=== PATIENT | male | born 1960 | race Two or more races ===

== ENCOUNTER 2022-01-22 10:03 | Outpatient (REF) | payer OTHER, SELFPAY ==
[2022-01-22 11:20] LABS: Appearance Urine CLEAR; Color Urine YELLOW; Glucose Urine UA NEG (NEG); Leukocyte Esterase Urine NEG (NEG); Nitrite Urine NEG (NEG); Specific Gravity - Urine >= 1.030 (1.005-1.025); Urine Blood 1+ (NEG); Urine Ketones NEG (NEG); Urine Protein NEG (NEG-TRACE)
[2022-01-22 11:22] LABS: MANUAL DIFF FLAG NO
[2022-01-22 11:38] LABS: Calcium Oxalate Crystals Urine TRACE /LPF; Squamous Epithelial Cell Urine TRACE /LPF; WBC Urine 0 /HPF (0-4)
[2022-01-22 11:47] LABS: Basophils Absolute Auto 0.1 X10*3/uL (0.0-0.2); Basophils Percent Auto 0.7 % (0-2); Eosinophils Absolute Auto 0.4 X10*3/uL (0.0-0.4); Hematocrit 40.1 % (42.0-52.0); Hemoglobin 13.6 g/dl (14.0-18.0); Imm Gran Abs Auto 0.01 X10*3/uL (0.00-0.03); Imm Gran Pct Auto 0.1 % (0.0-0.4); Lymphocytes Absolute Auto 2.6 X10*3/uL (1.2-4.9); Lymphocytes Percent Auto 35.9 % (20-40); Mean Corpuscular HGB Conc 33.9 g/dl (31.0-36.0); Mean Corpuscular Hemoglobin 29.7 pg (27.0-33.0); Mean Corpuscular Volume 87.6 fL (80.0-98.0); Mean Platelet Volume 10.4 fL (9.4-12.4); Monocytes Absolute Auto 0.7 X10*3/uL (0.1-1.2); Monocytes Percent Auto 9.4 % (2-11); Neutrophils Absolute Auto 3.5 x10*3/uL (2.0-8.3); Neutrophils Percent Auto 48.9 % (45-73); Platelet Count 243 X10*3/uL (160-400); Red Blood Count 4.58 X10*6/uL (4.60-5.80); Red Cell Distribution Width 13.2 % (11.0-16.0); White Blood Count 7.2 X10*3/uL (4.8-10.8)
[2022-01-22 12:11] LABS: PSA,Total (Free>4and<10) 1.25 ng/mL (0.00-4.00)
[2022-01-22 12:20] LABS: Alanine Aminotransferase 15 U/L (0-40); Albumin Level 4.2 g/dL (3.5-5.0); Alkaline Phosphatase 96 U/L (39-117); Anion Gap 15 (12-20); Aspartate Amino Transferase 14 U/L (5-37); Bilirubin Total 0.4 mg/dL (0.0-1.0); Blood Urea Nitrogen 14 mg/dL (9-16); Calcium 9.1 mg/dL (8.4-10.2); Carbon Dioxide 24 mmol/L (22-29); Chloride 106 mmol/L (96-108); Cholesterol 267 mg/dL; Estimated Glomerular Filt Rate > 60; Glucose Fasting 100 mg/dL (60-99); HDL Cholesterol 35 mg/dL; LDL Cholesterol Calculated 206 mg/dl; Sodium 141 mmol/L (135-145); Total Protein 7.2 g/dL (6.5-8.0); Triglycerides 131 mg/dL
== END 2022-01-22 10:04 | disposition home or self-care (01) ==
LOC: HO.HMGCLDS 10:03
PROVIDERS: PCP Internal Medicine; Visit Provider Internal Medicine
DX: Z00.00 Encounter for general adult medical examination without abnormal findings (principal); Z12.5 Encounter for screening for malignant neoplasm of prostate
CPT/HCPCS: 36415; 80053; 80061; 81001; 84153; 85025

== ENCOUNTER 2022-02-19 14:59 | Outpatient (REF) | payer OTHER, SELFPAY ==
--- NOTE | ~2022-02-19 | US_ITS ---
EXAMINATION: US RETROPERITONEAL LIMITED (RENAL ONLY) CLINICAL INFORMATION: Hyperlipidemia, unspecified. COMPARISON: None TECHNIQUE: Real-time imaging of the kidneys. FINDINGS: RIGHT KIDNEY: 10.8 x 5.4 x 7.2 cm (SAG x AP x TRV). The kidney is normal in size, contour, and echogenicity. Renal cortical thickness is normal. No renal calculi or hydronephrosis. There is an anechoic cyst midpole measuring 0.82 x 0.84 x 0.75 cm. LEFT KIDNEY: 11.8 x 5.6 x 5.7 cm (SAG x AP x TRV). The kidney is normal in size, contour, and echogenicity. Renal cortical thickness is normal. No calculi or focal parenchymal lesions. No hydronephrosis. US/US renal BI IMPRESSION: Anechoic complex cyst midpole measuring 0.82 x 0.85 x 0.75 cm.
== END 2022-02-19 15:00 | disposition home or self-care (01) ==
LOC: HO.HMGCX 14:59
PROVIDERS: Visit Provider Internal Medicine
DX: E78.5 Hyperlipidemia, unspecified (principal); R31.29 Other microscopic hematuria
CPT/HCPCS: 76775

== ENCOUNTER 2022-03-14 15:23 | Outpatient (REF) | payer OTHER, SELFPAY ==
--- NOTE | ~2022-03-14 | US_ITS ---
EXAMINATION: US PELVIS LIMITED (BLADDER) CLINICAL INFORMATION: Microscopic hematuria. COMPARISON: Renal ultrasound 02/19/2022. TECHNIQUE: Real-time imaging of the bladder. FINDINGS: BLADDER: Well distended and normal. Bilateral ureteral jets are demonstrated. Prevoid bladder volume is 455 mL. Postvoid bladder volume is 38 mL. PROSTATE: Mild prostatomegaly with a volume of 36 cc. US/US bladder IMPRESSION: 1. No significant urinary bladder abnormality. 2. Mild prostamegaly.
== END 2022-03-14 15:24 | disposition home or self-care (01) ==
LOC: HO.HMGCX 15:23
PROVIDERS: PCP Internal Medicine; Visit Provider Internal Medicine
DX: E78.5 Hyperlipidemia, unspecified (principal); R31.29 Other microscopic hematuria
CPT/HCPCS: 76857

== ENCOUNTER 2022-07-22 14:39 | Outpatient (REF) | payer OTHER, SELFPAY ==
[2022-07-22 16:38] LABS: MANUAL DIFF FLAG NO
[2022-07-22 16:47] LABS: Basophils Absolute Auto 0.1 X10*3/uL (0.0-0.2); Basophils Percent Auto 0.6 % (0-2); Eosinophils Absolute Auto 0.3 X10*3/uL (0.0-0.4); Hemoglobin 13.3 g/dl (14.0-18.0); Imm Gran Abs Auto 0.03 X10*3/uL (0.00-0.03); Imm Gran Pct Auto 0.3 % (0.0-0.4); Lymphocytes Percent Auto 31.4 % (20-40); Mean Corpuscular HGB Conc 33.3 g/dl (31.0-36.0); Mean Corpuscular Hemoglobin 29.1 pg (27.0-33.0); Mean Corpuscular Volume 87.5 fL (80.0-98.0); Mean Platelet Volume 10.5 fL (9.4-12.4); Monocytes Absolute Auto 0.8 X10*3/uL (0.1-1.2); Monocytes Percent Auto 8.5 % (2-11); Neutrophils Absolute Auto 5.3 x10*3/uL (2.0-8.3); Neutrophils Percent Auto 56.2 % (45-73); Platelet Count 250 X10*3/uL (160-400); Red Blood Count 4.57 X10*6/uL (4.60-5.80); Red Cell Distribution Width 13.4 % (11.0-16.0); White Blood Count 9.4 X10*3/uL (4.8-10.8)
[2022-07-22 16:54] LABS: Appearance Urine Clear; Color Urine Yellow; Glucose Urine UA Negative (Negative); Leukocyte Esterase Urine Trace (Negative); Nitrite Urine Negative (Negative); UMIC TRIGGER UA YES; Urine Blood Trace (Negative); Urine Ketones Negative (Negative); Urine Protein Negative (Neg-Trace)
[2022-07-22 16:59] LABS: Bacteria Urine None Seen (None Seen); Hyaline Casts Urine 0-2 /LPF (0-2); Squamous Epithelial Cell Urine 0-2 /HPF (0-2); WBC Urine 0-5 /HPF (0-5)
[2022-07-22 17:03] LABS: Alanine Aminotransferase 18 U/L (0-40); Albumin Level 4.3 g/dL (3.5-5.0); Alkaline Phosphatase 94 U/L (39-117); Anion Gap 15 (12-20); Aspartate Amino Transferase 13 U/L (5-37); Bilirubin Total 0.3 mg/dL (0.0-1.0); Blood Urea Nitrogen 13 mg/dL (9-16); C Reactive Protein 0.58 mg/dL (< or = 0.50); Calcium 9.4 mg/dL (8.4-10.2); Carbon Dioxide 28 mmol/L (22-29); Chloride 105 mmol/L (96-108); Cholesterol 264 mg/dL; Estimated Glomerular Filt Rate > 60; Glucose Random 99 mg/dL (60-115); HDL Cholesterol 36 mg/dL; LDL Cholesterol Calculated 200 mg/dl; Potassium 4.5 mmol/L (3.3-5.1); Sodium 143 mmol/L (135-145); Total Protein 7.1 g/dL (6.5-8.0); Triglycerides 144 mg/dL
== END 2022-07-22 14:40 | disposition home or self-care (01) ==
LOC: HO.HMGCLDS 14:39
PROVIDERS: Visit Provider Internal Medicine
DX: R31.29 Other microscopic hematuria (principal); K57.92 Diverticulitis of intestine, part unspecified, without perforation or abscess without bleeding
CPT/HCPCS: 36415; 80053; 80061; 81001; 85025; 86140

== ENCOUNTER 2022-07-26 08:56 | Outpatient (REF) | payer OTHER, SELFPAY | END 2022-07-26 08:57 | disposition home or self-care (01) | LOC: HO.HMGCLNP 08:56 | PROVIDERS: PCP Internal Medicine; Visit Provider Internal Medicine | DX: K57.92 Diverticulitis of intestine, part unspecified, without perforation or abscess without bleeding (principal) | CPT/HCPCS: 87338 ==

== ENCOUNTER 2022-07-30 13:17 | Outpatient (REF) | payer OTHER, SELFPAY ==
--- NOTE | ~2022-07-30 | CT_ITS ---
EXAMINATION: CT ABDOMEN AND PELVIS WITH CONTRAST CLINICAL INFORMATION: Diverticulitis and this time. COMPARISON: Ultrasound kidney 02/19/2022 TECHNIQUE: Multidetector volumetric images were obtained from the superior aspect of the liver through the pubic symphysis following administration 85 mL of Omnipaque 350 intravenous contrast. Sagittal and coronal reformatted images were obtained on the technologist's workstation. Oral contrast: No This CT examination was performed using dose optimization techniques as appropriate, variously including the following: *Automated exposure control *Adjustment of mA and/or kV according to patient size (this includes techniques or standardized protocols for targeted exams where dose is matched to indication/reason for exam; i.e. extremities or head) *Use of iterative reconstruction technique DLP: 644 mGy-cm FINDINGS: LUNG BASES: Mild subpleural cystic changes in both lung bases. The heart size is normal. There is minimal atelectatic changes right lung base. LIVER, GALLBLADDER, AND BILIARY TREE: The liver is normal in size, shape, and attenuation. There are punctate hypodensities seen in the left hepatic lobe. The right hepatic lobe appears unremarkable. No intrahepatic ductal dilatation seen.. The gallbladder is unremarkable with no evidence of radiopaque gallstones, gallbladder wall thickening, or obvious pericholecystic inflammatory changes. PANCREAS: Unremarkable. SPLEEN: Unremarkable. ADRENAL GLANDS: Left adrenal gland is enlarged. The right adrenal gland is unremarkable. KIDNEYS AND URETERS: Both kidneys are normal size, shape and position. No radiopaque renal calculi or hydronephrosis. There is a 6 mm hypodense nodule midpole right kidney BLADDER: There is a small intraluminal lesion or thickening along the posterior wall is suspected. This could be without without prostate encroachment or extension. GASTROINTESTINAL TRACT: There is scattered stool, diverticuli and gas seen throughout the colon without distention.. No mural thickening or pericolic fat stranding seen. The small bowel loops are normal caliber. Appendix is normal caliber. No free air or free fluid seen. ABDOMINAL WALL: A small helical hernia containing fat is noted. LYMPH NODES: Normal. VASCULAR: Unremarkable. PELVIC VISCERA: The prostate gland is moderately enlarged and is heterogeneous. OSSEOUS STRUCTURES: No aggressive lytic or sclerotic process seen. CT/CT abdomen pelvis w IV con IMPRESSION: 1. Colonic diverticulosis without diverticulitis. Mild constipation. 2. Moderate prostate enlargement. 3. Small intraluminal lesion or thickening along the posterior wall of the urinary bladder. Recommend cystoscopy. 4. Small umbilical hernia containing fat. Fleischner guidelines were followed.
[2022-07-30] MEDS: iohexoL 350 MG/ML 100 ML INFUS..BTL IV (15:16)
[2022-07-30] MEDS: Barium Sulfate Oral (Berry) 450 ML ORAL.SUSP 900 ML PO (15:16)
== END 2022-07-30 13:18 | disposition home or self-care (01) ==
LOC: HO.CT 13:17
PROVIDERS: PCP Internal Medicine; Visit Provider Internal Medicine
DX: K57.92 Diverticulitis of intestine, part unspecified, without perforation or abscess without bleeding (principal)
CPT/HCPCS: 74177; Q9967

== ENCOUNTER 2022-09-10 14:38 | Outpatient (REF) | payer OTHER, SELFPAY ==
[2022-09-10 16:36] LABS: Urine Cytology See Pathology rpt
== END 2022-09-10 14:39 | disposition home or self-care (01) ==
LOC: HO.LAB 14:38
PROVIDERS: PCP Internal Medicine; Visit Provider Nurse Practitioner Family
DX: R31.29 Other microscopic hematuria (principal); F17.210 Nicotine dependence, cigarettes, uncomplicated; Z79.899 Other long term (current) drug therapy
CPT/HCPCS: 88112

== ENCOUNTER 2023-05-27 13:40 | Outpatient (AMB) | payer OTHER, SELFPAY ==
[2023-05-27 13:46] VITALS: BP 124/66; PULSE 82; O2SAT 97; BMI 26.1
--- NOTE | 2023-05-27 13:46 | A.OFFPC_ITS ---
Vital Signs 05/27/23 13:46 Height 6 ft 2 in Weight 203 lb BMI 26.1 BP 124/66 Blood Pressure Location Lt brachial Position Sitting Pulse 82 Pulse Source Pulse Oximeter Pulse Oximetry (%) 97 Oxygen Delivery Method Room Air Intake Visit Reasons: Followup COVID in January Intake Note: Pt is here today for a follow up visit. Allergies No Known Allergies Allergy (Verified 05/27/23 13:47) Medication List - Last Reconciled 05/27/23 by Mahi Brizuela MD umeclidinium-vilanterol 62.5-25 mcg/actuation (Anoro Ellipta) 1 inh inhalation DAILY Tobacco use date assessed: 05/27/23 Dental Screening Dental Screen Date: 05/27/23 Did you have a dental visit in the last 12 months?: Yes Did you have a dental problem in the last 6 months where you did not have access to dental care?: No Was dental information given to patient?: Patient has dentist HPI Followup COVID in January HPI Details Patient complains of dyspnea on exertion and intermittent chronic cough for 3 months. Pt denies CP, fever, chills ,night sweats, weight loss. Pt c/o R hand weakness, slowly improving, pain and tingling sensation for 1 month. Pt smokes 1/2 ppd for 30 years. [facility] Social History Housing: House Patient Tobacco Use Status: Current everyday Tobacco user Cigarettes Per Day: 6 e-Cigarette/Vaping Use: Never Used service: Yes Current occupational status: employed Cognitive needs: No Hearing needs: No Vision needs: Yes Questionnaire Thrive Questionnaire Date Thrive assessed: 01/11/22 Review of Systems Const All systems reviewed & are unremarkable except as noted in HPI and below Reports no additional complaints Eyes Reports no additional complaints ENT Reports no additional complaints Card Reports no additional complaints Resp Reports no additional complaints GI Reports no additional complaints Physical exam (Primary Care) Vital Signs: Last Vital Signs Pulse 82 05/27/23 13:46 BP 124/66 05/27/23 13:46 Pulse Ox 97 05/27/23 13:46 Oxygen Delivery Method Room Air 05/27/23 13:46 BMI result Body Mass Index 26.1 Tobacco/Smoking Status: Tobacco use Status Tobacco use date assessed 05/27/23 05/27/23 13:48 Patient Tobacco Use Status Current everyday Tobacco 05/27/23 13:48 e-Cigarette/Vaping Use Never Used 05/27/23 13:48 Thrive Assessment: Date of Thrive Assessment Date Thrive assessed 01/11/22 05/27/23 13:48 Const General: no acute distress HENMT Head: Yes normal to inspection Face and sinus: Yes normal facial exam Neck Neck: Yes supple Resp Effort & Inspection: normal respiratory effort Auscultation: wheezes and diminished lung sounds Cardio Rhythm: regular rhythm Heart sounds: S1 normal heart sound present and S2 normal heart sound present GI Inspection: Yes normal to inspection Neuro General: CN's II-XI intact bilaterally Motor exam (neuro): 5/5 motor strength present throughout, Pronator motor function not present and Normal motor muscle tone present throughout Assessment and Plan Assessment & Plan (1) SOB (shortness of breath): Code(s): R06.02 - Shortness of breath Plan: check CXR, PFT start Anoro , tobacco quitting discussed (2) Hyperlipidemia: Comment: taking Fish oil, refused statin Code(s): E78.5 - Hyperlipidemia, unspecified Plan: check lipids (3) Numbness of right hand: Code(s): R20.0 - Anesthesia of skin Plan: check NCS Orders: Orders Comprehensive [place]. Panel Fast Today E78.5 - Hyperlipidemia, unspecified NE electromyogram (EMG) Today R20.0 - Anesthesia of skin Lipid Panel Today E78.5 - Hyperlipidemia, unspecified PFT pulmonary function test Today R06.02 - Shortness of breath Medications: New umeclidinium-vilanterol 62.5-25 mcg/actuation (Anoro Ellipta) 1 inh inhalation DAILY 60 ea 5RF Coding Level of Care Code Est Pt Level 4 (03580) Diagnoses SOB (shortness of breath) R06.02 Hyperlipidemia E78.5 Numbness of right hand R20.0
== END 2023-05-27 14:28 | disposition home or self-care (01) ==
PROVIDERS: PCP Internal Medicine; Visit Provider Internal Medicine
DX: R06.02 Shortness of breath (principal); E78.5 Hyperlipidemia, unspecified; R20.0 Anesthesia of skin
CPT/HCPCS: 99214

== ENCOUNTER 2023-05-27 14:29 | Outpatient (REF) | payer OTHER, SELFPAY ==
--- NOTE | ~2023-05-27 | XR_ITS ---
EXAMINATION: XR CHEST CLINICAL INFORMATION: Shortness of breath COMPARISON: None available. TECHNIQUE: 2 views of the chest were obtained. FINDINGS: Pulmonary vascular congestion and redistribution are suspected as is prominence of the central pulmonary vasculature. There are no pleural effusions. The cardiomediastinal silhouette is not enlarged. XR/XR chest 2V IMPRESSION: Prominent pulmonary vasculature with redistribution, suggesting congestive failure.
[2023-05-27 16:26] LABS: Alanine Aminotransferase 13 U/L (0-40); Albumin Level 4.3 g/dL (3.5-5.0); Alkaline Phosphatase 72 U/L (39-117); Anion Gap 14 (12-20); Aspartate Amino Transferase 15 U/L (5-37); Bilirubin Total 0.3 mg/dL (0.0-1.0); Blood Urea Nitrogen 13 mg/dL (9-16); Calcium 9.8 mg/dL (8.4-10.2); Carbon Dioxide 28 mmol/L (22-29); Chloride 105 mmol/L (96-108); Cholesterol 229 mg/dL (<200); Estimated Glomerular Filt Rate > 60; Glucose Fasting 99 mg/dL (60-99); HDL Cholesterol 38 mg/dL (>40); LDL Cholesterol Calculated 167 mg/dL (<100); Potassium 4.2 mmol/L (3.3-5.1); Sodium 143 mmol/L (135-145); Total Protein 7.8 g/dL (6.5-8.0); Triglycerides 123 mg/dL (<150)
== END 2023-05-27 14:30 | disposition home or self-care (01) ==
LOC: HO.HMGCX 14:29
PROVIDERS: PCP Internal Medicine; Visit Provider Internal Medicine
DX: R06.02 Shortness of breath (principal); E78.5 Hyperlipidemia, unspecified
CPT/HCPCS: 36415; 71046; 80053; 80061

== ENCOUNTER → 2023-06-18 14:51 | Outpatient (BNV) | payer OTHER, SELFPAY | PROVIDERS: PCP Internal Medicine; Visit Provider Internal Medicine | DX: R06.02 Shortness of breath (principal) | CPT/HCPCS: 93306 ==

== ENCOUNTER → 2023-06-18 15:34 | Outpatient (REF) | payer OTHER, SELFPAY ==
--- NOTE | 2023-06-18 14:51 | CA_ITS ---
Transthoracic Echocardiogram Patient (Last, First, Middle): Wiliam Do, Gender: Male Date of : 1960 Age: 62 Procedure Date: 06/18/2023 Procedure Type: Transthoracic Echocardiogram Location: OP Height: 187.96 cm Weight: 92.08 kg BSA: 2.19 m2 Heart Rate: 79 bpm BP: 122 / 64 mmHg Customs Opener Verifier Packer: SB Referring MD: Mahi Brizuela MD Symptoms: R06.02 - Shortness of breath Study Quality: Adequate ECG Rhythm: Sinus Conclusions: - The left ventricular systolic function is normal. The calculated ejection fraction is 65% by biplane method. - No obvious valvular pathology seen on this study. Findings Left Ventricle Normal left ventricular cavity size. There is normal left ventricular wall thickness. The left ventricular systolic function is normal. The calculated ejection fraction is 65% by biplane method. There is no evidence of regional wall motion abnormalities. Diastolic function is normal for age. LV peak GLS -17.9%. Right Ventricle Normal right ventricular cavity size and systolic function. Atria Both atria are normal in size. Aortic Valve There is a normal trileaflet aortic valve. There is no aortic valve stenosis. There is trace (trivial) aortic valve regurgitation. Mitral Valve The mitral valve appears normal. There is trace mitral valve regurgitation. There is no mitral valve stenosis. Pulmonic Valve The pulmonic valve is likely normal. Tricuspid Valve Normal tricuspid valve structure. There is mild tricuspid valve regurgitation. There is no evidence of pulmonary hypertension. Great Vessels The asc aorta is normal in size. Venous The inferior vena cava is normal in size and collapses greater than 50% with inspiration. Pericardium/Pleural There is no evidence of pericardial effusion. Prior Study Comparison No prior study available for comparison. Recommendations, Care & Conclusions No obvious valvular pathology seen on this study. Measurements 2D Linear Measurements IVSd: 0.77 0.6-0.9/0.6-1.0 cm LVIDd: 5.16 3.9-5.3/4.2-5.9 cm LVIDd Index: 2.36 2.4-3.2/2.2-3.1 cm/m2 LVIDs: 3.50 2.0-3.6 cm LVPWd: 0.65 0.7-1.1 cm LA Diam: 3.60 2.7-3.8/3.0-4.0 cm LAIDs Index: 1.64 1.5-2.3 cm/m2 LV Mass: 153.00 67-162/88-224 g LV Mass Index: 69.86 43-95/49-115 g/m2 LVOT Diam: 2.10 3.0+(-)1.3 cm 2D Systolic Function EF 4C: 68.40 >55% EF 2C: 60.20 >55% EF BiP: 65.30 >55% Mitral Valve MV Pk E: 0.84 MV PK A: 0.75 MV Decel Time: 207.00 E/A: 1.10 E'Lateral: 8.49 E'Medial: 6.85 E/E' Med: 12.30 E/E' Lat: 9.90 PHT: 61.00 MVA PHT: 3.61 Decel [place]: 4.08 Aortic Valve AoV Pk Edwin: 1.22 AoV Pk Grad: 6.00 CAROLYN: 3.94 LVOT LVOT Pk Edwin: 1.29 LVOT Mn Edwin: 0.89 LVOT VTI: 0.28 LVOT Pk Grad: 7.00 LVOT Mn Grad: 4.00 LVOT Diam: 2.10 LVOT Area: 3.46 Diastolic Function MV Pk E: 0.84 MV Pk A: 0.75 E/A: 1.10 E'Medial: 6.85 E/E' Med: 12.30 E' Laterial: 8.49 E/E' Lat: 9.90 Right Ventricle TAPSE (mm): 24.30 TVS' Edwin: 12.60 Tricuspid Valve TR Pk Edwin: 2.59 TR Pk Grad: 27.00 RA Press: 3.00 RVSP: 30.00 Great Vessels Aorta Sinus of Valsalva: 3.30 2.0-3.5 cm Ao Asc: 3.60 2.1-3.4 cm Ao Arch: 3.30 Pulmonary Veins Pulm Vein S/D 1.30 Pulmonary Valve PV Pk Edwin: 0.98 Peak PV Grad: 4.00 Updated in Other Vendor System with Status of Final Zane Pena MD electronically signed on 06/19/2023 12:46:08 PM with status of Final
== END ==
LOC: HO.CARD 15:34
PROVIDERS: PCP Internal Medicine; Visit Provider Internal Medicine
DX: R06.02 Shortness of breath (principal); I50.9 Heart failure, unspecified
CPT/HCPCS: 93306; 93356

== ENCOUNTER 2023-07-25 14:44 | Outpatient (REF) | payer OTHER, SELFPAY ==
--- NOTE | 2023-07-25 14:50 | EMG_ITS ---
Chief complaint: Started as right upper arm pain in January 2023, gradually progressing to a constant right hand numbness Reason for referral: Evaluate for radiculopathy versus Carpal Tunnel Syndrome Referred by: Dr. Brizuela Procedure done: Right upper extremity NCS/EMG Precautions and/or limitations: None The limb temperature was monitored continuously and remained between 32-36 degrees C during the performance of the NCS. Nerve Conduction Studies Anti Sensory Summary Table ?Stim Site NR Onset (ms) Norm Onset (ms) Peak (ms) Norm Peak (ms) O-P Amp (?V) Norm O-P Amp Site1 Site2 Delta-0 (ms) Dist (cm) Edwin (m/s) Norm Edwin (m/s) Right Median Anti Sensory (2nd Digit) Wrist ? 2.3 3.1 <3.6 19.5 >10 Wrist 2nd Digit 2.3 14.0 61 Right Ulnar Anti Sensory (5th Digit) Wrist ? 2.3 2.8 <3.7 16.7 >15.0 Wrist 5th Digit 2.3 14.0 61 Motor Summary Table ?Stim Site NR Onset (ms) Norm Onset (ms) O-P Amp (mV) Norm O-P Amp iAmp (mV) Amp (1st) (%) Site1 Site2 Delta-0 (ms) Dist (cm) Edwin (m/s) Norm Edwin (m/s) Right Median Motor (Abd Poll Brev) Wrist ? 3.5 <3.9 6.8 >4.5 8.2 100.0 Elbow Wrist 4.9 24.0 49 >45 Elbow ? 8.4 6.7 8.2 98.5 Right Ulnar Motor (Abd Dig Minimi) Wrist ? 2.9 <3.0 7.2 >5 9.0 100.0 B Elbow Wrist 3.9 21.0 54 >45 B Elbow ? 6.8 7.3 9.2 101.4 A Elbow B Elbow 1.5 10.0 67 >45 A Elbow ? 8.3 7.0 9.0 97.2 Comparison Summary Table ?Stim Site NR Peak (ms) Norm Peak (ms) P-T Amp (?V) Site1 Site2 Delta-P (ms) Norm Delta (ms) Right Median/Radial Dig I Comparison (Digit 1 - 10cm) Median ? 2.6 <2.9 17.4 0.4 Radial ? 2.3 12.9 EMG ?Side Muscle Nerve Root Ins Act Fibs Psw Amp Dur Poly Recrt Int Pat Comment Right 1stDorInt Ulnar C8-T1 Nml Nml Nml Nml Nml 0 Nml Complete Right FlexCarRad Median C6-7 Nml Nml Nml Nml Nml 0 Nml Complete Right Biceps Musculocut C5-6 Nml Nml Nml Nml Nml 0 Nml Complete Right Triceps Radial C6-7-8 Nml Nml Nml Incr Incr 0 Nml Complete Right Deltoid Axillary C5-6 Nml Nml Nml Nml Nml 0 Nml Complete Paraspinal EMG ?Side Muscle Nerve Root Ins Act Fibs Psw Comment Right Cervical Upper Rami Nml Nml Nml Right Cervical Mid Rami Nml Nml Nml Right Cervical Lower Rami Nml Nml Nml FINDINGS: All motor and sensory nerves tested showed normal latencies, amplitudes and conduction velocities. Concentric needle EMG was performed in selected muscles of the right upper extremity and cervical paraspinal. Study revealed Signs of electric abnormalities as shown in the table below. Right triceps showed increased amplitude and duration. IMPRESSION: 1. This is an abnormal study. 2. There is electrodiagnostic findings suggestive of a chronic right C7 radiculopathy. 3. There is no electrodiagnostic evidence for median neuropathy, ulnar neuropathy, or brachial plexopathy. Thank you for your kind referral. Jada Howard MD, CAITLYN Board Certified, [place] Board [employer] and Rehabilitation (ABPMR) Board Certified, [place] Board of Electrodiagnostic Medicine (ABEM) [place] [id number] [facility]
== END 2023-07-25 14:45 | disposition home or self-care (01) ==
LOC: HO.NEURO 14:44
PROVIDERS: PCP Internal Medicine; Visit Provider Internal Medicine
DX: R20.0 Anesthesia of skin (principal)
CPT/HCPCS: 95886; 95909

== ENCOUNTER → 2023-07-25 14:50 | Outpatient (BNV) | payer OTHER, SELFPAY | PROVIDERS: PCP Internal Medicine; Visit Provider Physical Medicine & Rehabilitation | DX: M50.123 Cervical disc disorder at C6-C7 level with radiculopathy (principal) | CPT/HCPCS: 95886; 95909 ==

== ENCOUNTER 2023-07-28 13:48 | Outpatient (AMB) | payer OTHER, SELFPAY ==
[2023-07-28 14:14] VITALS: BP 136/80; PULSE 86; O2SAT 96; BMI 26.4
--- NOTE | 2023-07-28 14:14 | A.OFFPC_ITS ---
Vital Signs 07/28/23 14:14 Height 6 ft 2 in Weight 206 lb BMI 26.4 BP 136/80 Blood Pressure Location Lt brachial Position Sitting Pulse 86 Pulse Source Pulse Oximeter Pulse Oximetry (%) 96 Oxygen Delivery Method Room Air Intake Visit Reasons: Followup COVID in January Intake Note: Pt is here today for a follow up visit. Allergies No Known Allergies Allergy (Verified 07/28/23 14:16) Medication List - Last Reconciled 07/28/23 by Mahi Brizuela MD umeclidinium-vilanterol 62.5-25 mcg/actuation (Anoro Ellipta) 1 inh inhalation DAILY Tobacco use date assessed: 07/28/23 Dental Screening Dental Screen Date: 07/28/23 Did you have a dental visit in the last 12 months?: No Did you have a dental problem in the last 6 months where you did not have access to dental care?: No Was dental information given to patient?: Patient declined HPI Followup COVID in January HPI Details Patient presents for the follow-up. COPD is controlled on Anoro. Patient has been smoking half a pack a diet and try to quit without success. He had normal echocardiogram. For chronic right hand weakness and numbness EMG was consistent with C7 radiculopathy. [facility] Social History Housing: House Patient Tobacco Use Status: Current everyday Tobacco user Cigarettes Per Day: 6 e-Cigarette/Vaping Use: Never Used service: Yes Current occupational status: employed Cognitive needs: No Hearing needs: No Vision needs: Yes Questionnaire Thrive Questionnaire Date Thrive assessed: 01/11/22 Review of Systems Const All systems reviewed & are unremarkable except as noted in HPI and below Reports no additional complaints Eyes Reports no additional complaints ENT Reports no additional complaints Card Reports no additional complaints Resp Reports no additional complaints GI Reports no additional complaints Reports no additional complaints Physical exam (Primary Care) Vital Signs: Last Vital Signs Pulse 86 07/28/23 14:14 BP 136/80 07/28/23 14:14 Pulse Ox 96 07/28/23 14:14 Oxygen Delivery Method Room Air 07/28/23 14:14 BMI result Body Mass Index 26.4 Tobacco/Smoking Status: Tobacco use Status Tobacco use date assessed 07/28/23 07/28/23 14:18 Patient Tobacco Use Status Current everyday Tobacco 07/28/23 14:18 e-Cigarette/Vaping Use Never Used 07/28/23 14:18 Thrive Assessment: Date of Thrive Assessment Date Thrive assessed 01/11/22 07/28/23 14:18 Eyes General: appearance normal, both eyes and all related structures Resp Effort & Inspection: normal respiratory effort Auscultation: clear to auscultation bilaterally Cardio Rhythm: regular rhythm Heart sounds: S1 normal heart sound present and S2 normal heart sound present GI Inspection: Yes normal to inspection Palpation (GI): Soft to palpation Neuro Other: Right hand track laminating machine tender is 4 to 5/5 compared to 5/5 in left hand track laminating machine tender, deep tendon reflexes right biceps 1+ left biceps 2+ Assessment and Plan Assessment & Plan (1) Smoker: Comment: 1/2 PPD, x 40 yrs Code(s): F17.200 - Nicotine dependence, unspecified, uncomplicated Plan: Tobacco quitting discussed with the patient (2) CHF (congestive heart failure): Comment: ECHO nl EF, nl valves 06/14 Code(s): I50.9 - Heart failure, unspecified (3) C7 radiculopathy: Comment: EMG 06/14 Code(s): M54.12 - Radiculopathy, cervical region Plan: Obtain C-spine MRI to evaluate for disc herniation and referred to neurosurgeon after MRI if needed (4) Microscopic hematuria: Comment: pt refused urology referral Code(s): R31.29 - Other microscopic hematuria Plan: Check urinalysis urine cytology patient refused to see urologist understanding diet he may have undiagnosed bladder cancer Orders: Orders Complete Blood Count no Diff 3 Months R31. - Other microscopic hematuria PSA,Total (Free>4and<10) 3 Months R31.29 - Other microscopic hematuria Vitamin B12 and Folate 3 Months R31.29 - Other microscopic hematuria IRON PROFILE 3 Months R31.29 - Other microscopic hematuria MR cervical spine wo con Today M54.12 - Radiculopathy, cervical region Comprehensive [place]. Panel Fast 3 Months R31.29 - Other microscopic hematuria Lipid Panel 3 Months R31.29 - Other microscopic hematuria Urine Cytology Today R31.29 - Other microscopic hematuria Coding Level of Care Code Est Pt Level 4 (00683) Diagnoses Smoker F17.200 CHF (congestive heart failure) I50.9 C7 radiculopathy M54.12 Microscopic hematuria R31.29
== END 2023-07-28 14:50 | disposition home or self-care (01) ==
PROVIDERS: PCP Internal Medicine; Visit Provider Internal Medicine
DX: F17.200 Nicotine dependence, unspecified, uncomplicated (principal); I50.9 Heart failure, unspecified; M54.12 Radiculopathy, cervical region; R31.29 Other microscopic hematuria
CPT/HCPCS: 99214

== ENCOUNTER 2023-08-29 18:01 | Outpatient (REF) | payer OTHER, SELFPAY ==
--- NOTE | ~2023-08-29 | MR_ITS ---
EXAMINATION: MR CERVICAL SPINE WITHOUT CONTRAST CLINICAL INFORMATION: 62-year-old with radiculopathy, cervical region. Self-reported right arm/hand yjhi-pbh-fhgptth of 8 months' duration. COMPARISON: None available. TECHNIQUE: MRI of the cervical spine was obtained using routine sequences without contrast. FINDINGS: ALIGNMENT: There is mild lordotic reversal centered at C3-C4. No significant spondylolisthesis or retrolisthesis. CRANIOCERVICAL JUNCTION/C1-C2 ARTICULATIONS: Intact and aligned. Arthritic changes noted at the atlantodental joint. VISUALIZED INTRACRANIAL STRUCTURES: There is a 6 mm faint round T2 hyperintensity in the medulla which is nonspecific. Recommend MRI of the brain without and with contrast to further assess this. VERTEBRAL BODIES: Vertebral body heights are well maintained. DISC SPACES AND ENDPLATES: There is lyxyqjqb-gw-hfwhbs intervertebral disc space height loss at C3-C4 and there is severe disc space height loss at C4-C5, C5-C6 and C6-C7, with multilevel Schmorl's nodes and degenerative endplate irregularity at these levels with multilevel spondylosis and disc desiccation. BONE MARROW: There is type I degenerative marrow signal change seen along the endplates at C4-C5, with marrow edema extending to the superior endplate of C4 and to the inferior endplate of C5 which is nonspecific. There are type II degenerative marrow signal changes seen along the endplates between C3-C4 and C6-C7 inclusive. C2-C3: Mild disc osteophyte complex noted with mild flattening of the ventral dural sac without cord impingement. Mild central canal stenosis is noted at this level. There is uncovertebral spurring and mild facet arthropathy bilaterally without significant neural foraminal stenosis. C3-C4: There is central disc osteophyte complex with effacement of the ventral dural sac resulting in infbezjz-ks-vnfxrh ventral cord deformity/impingement, with rvsuxbcm-cw-shsppe spinal canal stenosis. There is probable chronic cord volume loss at this level with some T2 alteration in the spinal cord suggesting some degree of spondylitic myelomalacia. Uncovertebral spurring and facet arthropathy is noted with moderate bilateral neural foraminal stenosis. C4-C5: Broad-based disc osteophyte complex is noted asymmetric to the left with effacement of the ventral dural sac with vqdxtcdm-xk-xbtbxp ventral cord compression/cord deformity and cord volume loss with T2 signal alteration in the spinal cord suggesting chronic spondylitic myelomalacia. There is severe spinal canal stenosis and there is bilateral uncovertebral spurring and facet arthropathy with severe bilateral neural foraminal stenosis. C5-C6: Disc osteophyte complex noted, with effacement of the ventral dural sac and xdkc-wg-ayeljdsi ventral cord deformity, likely chronic with cord volume loss and T2 signal alteration in the spinal cord suggest chronic spondylitic myelomalacia. Cimopfsr-lm-rrlwuw spinal canal stenosis is noted. There is uncovertebral spurring and facet arthropathy with vjourpor-kz-kyjqzn bilateral neural foraminal stenosis. C6-C7: Broad-based disc osteophyte complex with flattening of the ventral dural sac on the left and effacement of the dural sac on the right abutting the right ventral spinal cord with mild right-sided ventral cord deformity and moderate central spinal canal stenosis asymmetric to the right. Uncovertebral spurring is noted with severe bilateral neural foraminal stenosis. Right lateral recess stenosis also noted. C7-T1: Mild posterolateral disc osteophyte complex bilaterally with ligamentum flavum thickening without significant canal stenosis or cord impingement. Mild facet arthrosis without significant neural foraminal stenosis. SPINAL CORD: See above. 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 EXTRACRANIAL SOFT TISSUES: The visualized extracranial head/neck soft tissues are unremarkable within the limitations of the study. Signal voids are seen in the visualized major arterial and venous structures. MR/MR cervical spine wo con IMPRESSION: 1. Lordotic reversal centered at C3-C4 with multilevel DDD and spondylosis, with multilevel disc osteophyte complexes, uncovertebral and facet arthropathy throughout the cervical spine, with multilevel vrahkhit-ta-rmuzvv spinal canal stenosis and multilevel ventral cord deformity/impingement, between C3-C4 and C6-C7 inclusive as detailed above. 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 2. Multilevel bilateral bony neural foraminal stenosis as discussed above. 3. Nonspecific 6 mm faint T2 hyperintensity in the medulla. Recommend MRI of the brain without and with contrast to further assess this. The [facility] staff will call to confirm receipt of this report with acknowledgement of the findings and any recommendations.
== END 2023-08-29 18:02 | disposition home or self-care (01) ==
LOC: HO.MRI 18:01
PROVIDERS: PCP Internal Medicine; Visit Provider Internal Medicine
DX: M54.12 Radiculopathy, cervical region (principal)
CPT/HCPCS: 72141

== ENCOUNTER 2023-11-28 13:43 | Outpatient (AMB) | payer OTHER, SELFPAY ==
[2023-11-28 14:11] VITALS: BP 124/76; PULSE 88; O2SAT 97; BMI 26.4
--- NOTE | 2023-11-28 14:11 | A.OFFPC_ITS ---
Vital Signs 11/28/23 14:11 Height 6 ft 2 in Weight 206 lb BMI 26.4 BP 124/76 Blood Pressure Location Lt brachial Position Sitting Pulse 88 Pulse Source Pulse Oximeter Pulse Oximetry (%) 97 Oxygen Delivery Method Room Air Intake Visit Reasons: Annual PE per Arden Brizuela Intake Note: Pt is here today for PE. Allergies No Known Allergies Allergy (Verified 11/28/23 14:12) Medication List - Last Reconciled 11/28/23 by Mahi Brizuela MD umeclidinium-vilanterol 62.5-25 mcg/actuation (Anoro Ellipta) 1 inh inhalation DAILY PRN Tobacco use date assessed: 11/28/23 Dental Screening Dental Screen Date: 07/28/23 HPI Annual PE per Arden Brizuela HPI Details PATIENT PRESENTS FOR PHYSICAL. He complains of chronic left knee pain stiffness on and off worse when walking for a few months. [facility] Family History Father No problems noted. Mother No problems noted. Social History Housing: House Patient Tobacco Use Status: Current everyday Tobacco user Cigarettes Per Day: 6 e-Cigarette/Vaping Use: Never Used service: Yes Current occupational status: employed Cognitive needs: No Hearing needs: No Vision needs: Yes Questionnaire PHQ-9 Over the last 2 weeks, how often have you been bothered by any of the following problems? 1. Little interest or pleasure in doing things: not at all 2. Feeling down, depressed, or hopeless: not at all 3. Trouble falling or staying asleep, or sleeping too much: not at all 4. Feeling tired or having little energy: not at all 5. Poor appetite or overeating: not at all 6. Feeling bad about yourself - or that you are a failure or have let yourself or your family down: not at all 7. Trouble concentrating on things, such as reading the newspaper or watching television: not at all 8. Moving or speaking so slowly that other people could have noticed. Or the opp osite - being so fidgety or restless that you have been moving around a lot more than usual: not at all 9. Thoughts that you would be better off or of hurting yourself in some way: not at all Total score: 0 Depression Screening Interpretation: Negative Depression Screening Done: Yes Source: Developed by Drs. Alejo Rojas, Delroy Hinojosa and colleagues, with an educational janie from [employer]. Thrive Questionnaire Date Thrive assessed: 11/28/23 I am a: Patient What is your living situation today?: I have a steady place to live Within the past 12 months, did the food you bought not last and you didn't have the money to get more?: Never true Within the past 12 months, did you worry whether your food would run out before you got money to buy more?: Never true Do you have trouble paying for medicines?: No Do you have trouble getting transportation to medical appointments?: No Do you have trouble paying your heating and electricity bill?: No Do you have trouble taking care of your child, family member or friend?: No Do you have trouble with day-to-day activities such as bathing, preparing meals, shopping, managing finances, etc.?: No Are you currently unemployed and looking for a job?: No Are you interested in more education?: No Please select the resources that you would like help with: None THRIVE Score: 0 FIDENCIO-7 AMB Questionnaire FIDENCIO-7 Date FIDENCIO - 7 assessed: 11/28/23 Feeling nervous, anxious, or on edge: 0 = Not at all Not being able to stop or control worryin = Not at all Worrying too much about different things: 0 = Not at all Trouble relaxin = Not at all Being so restless that it is hard to sit still: 0 = Not at all Becoming easily annoyed or irritable: 0 = Not at all Feeling afraid as if something awful might happen: 0 = Not at all Total FIDENCIO-7 score (0-4 normal; 5-9 mild; 10-14 moderate; 15-21 severe): 0 Source: Developed by Drs. Alejo Rojas, Delroy Hinojosa and colleagues, with an educational janie from [employer]. Review of Systems Const All systems reviewed & are unremarkable except as noted in HPI and below Eyes Reports no additional complaints ENT Reports no additional complaints Card Reports no additional complaints Resp Reports no additional complaints GI Reports no additional complaints Reports no additional complaints Physical exam (Primary Care) Vital Signs: Last Vital Signs Pulse 88 11/28/23 14:11 BP 124/76 11/28/23 14:11 Pulse Ox 97 11/28/23 14:11 Oxygen Delivery Method Room Air 11/28/23 14:11 BMI result Body Mass Index 26.4 Tobacco/Smoking Status: Tobacco use Status Tobacco use date assessed 11/28/23 11/28/23 14:14 Patient Tobacco Use Status Current everyday Tobacco 11/28/23 14:14 e-Cigarette/Vaping Use Never Used 11/28/23 14:14 PHQ-9: PHQ-9 Score PHQ-9: Total score 0 11/28/23 14:17 Depression Screening Interpretation: Negative Thrive Assessment: Date of Thrive Assessment Date Thrive assessed 11/28/23 11/28/23 14:17 Const General: no acute distress HENMT Face and sinus: Yes normal facial exam Mouth: Normal oral and palatal mucosa present Eyes General: appearance normal, both eyes and all related structures Neck Neck: Yes no lymphadenopathy and Yes supple Resp Effort & Inspection: normal respiratory effort Auscultation: clear to auscultation bilaterally Cardio Rhythm: regular rhythm Heart sounds: S1 normal heart sound present and S2 normal heart sound present GI Inspection: Yes normal to inspection Palpation (GI): Soft to palpation Percussion: Yes normal to percussion Auscultation: normal bowel sounds Extrem Other: Decreased range of motion and crepitus of the left knee no soft tissue swelling Assessment and Plan Assessment & Plan (1) Smoker: Comment: 2 PPD, x 40 yrs Code(s): F17.200 - Nicotine dependence, unspecified, uncomplicated Plan: Tobacco quitting discussed with the patient. He will be referred to lung cancer screening program (2) Knee pain, left: Code(s): M25.562 - Pain in left knee Plan: Obtain x-ray, patient declined physical therapy he was giving home exercises if there is advanced osteoarthritis patient will be referred to ortho for cortisone/ injection (3) Hip pain, bilateral: Code(s): M25.551 - Pain in right hip; M25.552 - Pain in left hip Plan: Check x-rays of both hips (4) Hyperlipidemia: Comment: taking Fish oil, refused statin Code(s): E78.5 - Hyperlipidemia, unspecified Plan: Check blood work including lipid profile continue fish oil (5) Annual physical exam: Comment: Refused colonoscopy 01/11, negative Cologuard 01/11 Code(s): Z00.00 - Encounter for general adult medical examination without abnormal findings Plan: Well-balanced diet regular exercise discussed with the patient Orders: Orders XR hip BI w PEL1V Today M25.551 - Pain in right hip, M25.552 - Pain in left hip, M25.562 - Pain in left knee XR knee LT 2V Today M25.551 - Pain in right hip, M25.552 - Pain in left hip, M25.562 - Pain in left knee Complete Blood Count Auto Diff Today E78.5 - Hyperlipidemia, unspecified, Z00.00 - Encounter for general adult medical examination without abnormal findings Lipid Panel 1 Year E78.5 - Hyperlipidemia, unspecified, Z00.00 - Encounter for general adult medical examination without abnormal findings Comprehensive [place]. Panel Fast 1 Year E78.5 - Hyperlipidemia, unspecified, Z00.00 - Encounter for general adult medical examination without abnormal findings Comprehensive [place]. Panel Fast Today E78.5 - Hyperlipidemia, unspecified, Z00.00 - Encounter for general adult medical examination without abnormal findings Lipid Panel Today E78.5 - Hyperlipidemia, unspecified, Z00.00 - Encounter for general adult medical examination without abnormal findings PSA,Total (Free>4and<10) Today E78.5 - Hyperlipidemia, unspecified, Z00.00 - Encounter for general adult medical examination without abnormal findings TSH reflex Free T4 Today E78.5 - Hyperlipidemia, unspecified, Z00.00 - Enc ounter for general adult medical examination without abnormal findings UA w Microscopic Today E78.5 - Hyperlipidemia, unspecified, Z00.00 - Encounter for general adult medical examination without abnormal findings Complete Blood Count Auto Diff 1 Year E78.5 - Hyperlipidemia, unspecified, Z00.00 - Encounter for general adult medical examination without abnormal findings PSA,Total (Free>4and<10) 1 Year E78.5 - Hyperlipidemia, unspecified, Z00.00 - Encounter for general adult medical examination without abnormal findings Referrals Thoracic/General Surgery Referral F17.200 - Nicotine dependence, unspecified, uncomplicated Medications: Changed From umeclidinium-vilanterol 62.5-25 mcg/actuation (Anoro Ellipta) 1 inh inhalation DAILY 60 ea 5RF To umeclidinium-vilanterol 62.5-25 mcg/actuation (Anoro Ellipta) 1 inh inhalation DAILY PRN Coding Level of Care Code Est Pt Prev Care 40-64y(71417) Diagnoses Smoker F17.200 Knee pain, left M25.562 Hip pain, bilateral M25.551; M25.552 Hyperlipidemia E78.5 Annual physical exam Z00.00
== END 2023-11-28 14:53 | disposition home or self-care (01) ==
PROVIDERS: PCP Internal Medicine; Visit Provider Internal Medicine
DX: F17.200 Nicotine dependence, unspecified, uncomplicated (principal); M25.562 Pain in left knee; M25.551 Pain in right hip; M25.552 Pain in left hip; E78.5 Hyperlipidemia, unspecified; Z00.00 Encounter for general adult medical examination without abnormal findings
CPT/HCPCS: 99396

== ENCOUNTER 2023-11-28 14:49 | Outpatient (REF) | payer OTHER, SELFPAY ==
--- NOTE | ~2023-11-28 | XR_ITS ---
EXAMINATION: XR LEFT KNEE XR PELVIS AND BILATERAL HIPS COMPARISON: CT abdomen and pelvis of 07/30/2022. X-rays Lumbar spine of 01/02/2023. TECHNIQUE: AP and lateral views of the left knee. AP view of the pelvis as well as 2 views of each hip. LEFT KNEE: Moderate joint effusion. Mild narrowing of the medial compartment. Minimal tricompartmental osteophytes. AP PELVIS AND BILATERAL HIPS: Bilateral sacroiliac joints are maintained. Surgical clips overlie the scrotal region. Pubic symphysis is maintained. Moderate degenerative changes in the bilateral hips with joint space narrowing and hypertrophic change. There is a lucent lesion was sclerotic margins in the left femoral neck. This lesion was better characterized on CT abdomen and pelvis of July 30, 2022. Correlation with clinical exam recommended to determine further management. XR/XR knee LT 2V IMPRESSION: 1. Moderate joint effusion. Mild degenerative changes left knee. 2. Moderate degenerative changes bilateral hips. 3. There is a lucent lesion with sclerotic margins in the left femoral neck. This lesion was better characterized on CT abdomen and pelvis of July 30, 2022. Correlation with clinical exam recommended to determine further management.
--- NOTE | ~2023-11-28 | XR_ITS ---
EXAMINATION: XR LEFT KNEE XR PELVIS AND BILATERAL HIPS COMPARISON: CT abdomen and pelvis of 07/30/2022. X-rays Lumbar spine of 01/02/2023. TECHNIQUE: AP and lateral views of the left knee. AP view of the pelvis as well as 2 views of each hip. LEFT KNEE: Moderate joint effusion. Mild narrowing of the medial compartment. Minimal tricompartmental osteophytes. AP PELVIS AND BILATERAL HIPS: Bilateral sacroiliac joints are maintained. Surgical clips overlie the scrotal region. Pubic symphysis is maintained. Moderate degenerative changes in the bilateral hips with joint space narrowing and hypertrophic change. There is a lucent lesion was sclerotic margins in the left femoral neck. This lesion was better characterized on CT abdomen and pelvis of July 30, 2022. Correlation with clinical exam recommended to determine further management. XR/XR hip BI w PEL1V IMPRESSION: 1. Moderate joint effusion. Mild degenerative changes left knee. 2. Moderate degenerative changes bilateral hips. 3. There is a lucent lesion with sclerotic margins in the left femoral neck. This lesion was better characterized on CT abdomen and pelvis of July 30, 2022. Correlation with clinical exam recommended to determine further management.
[2023-11-28 15:59] LABS: MANUAL DIFF FLAG NO
[2023-11-28 16:01] LABS: Appearance Urine Clear; Color Urine Yellow; Glucose Urine UA Negative (Negative); Leukocyte Esterase Urine Negative (Negative); Nitrite Urine Negative (Negative); Specific Gravity - Urine 1.025 (1.005-1.025); Urine Blood Negative (Negative); Urine Ketones Negative (Negative); Urine Protein Negative (Neg-Trace)
[2023-11-28 16:12] LABS: Basophils Absolute Auto 0.1 X10*3/uL (0.0-0.2); Basophils Percent Auto 0.9 % (0-2); Eosinophils Absolute Auto 0.3 X10*3/uL (0.0-0.4); Eosinophils Percent Auto 3.6 % (0-4); Hematocrit 40.7 % (42.0-52.0); Hemoglobin 13.8 g/dl (14.0-18.0); Imm Gran Abs Auto 0.03 X10*3/uL (0.00-0.03); Imm Gran Pct Auto 0.3 % (0.0-0.4); Lymphocytes Absolute Auto 3.2 X10*3/uL (1.2-4.9); Lymphocytes Percent Auto 35.4 % (20-40); Mean Corpuscular HGB Conc 33.9 g/dl (31.0-36.0); Mean Corpuscular Hemoglobin 30.2 pg (27.0-33.0); Mean Corpuscular Volume 89.1 fL (80.0-98.0); Mean Platelet Volume 10.3 fL (9.4-12.4); Monocytes Absolute Auto 0.7 X10*3/uL (0.1-1.2); Monocytes Percent Auto 7.9 % (2-11); Neutrophils Absolute Auto 4.7 x10*3/uL (2.0-8.3); Neutrophils Percent Auto 51.9 % (45-73); Platelet Count 240 X10*3/uL (160-400); Red Blood Count 4.57 X10*6/uL (4.60-5.80); Red Cell Distribution Width 13.2 % (11.0-16.0)
[2023-11-28 16:12] LABS: Bacteria Urine None Seen (None Seen); Hyaline Casts Urine 0-2 /LPF (0-2); Squamous Epithelial Cell Urine 0-2 /HPF (0-2); WBC Urine 0-5 /HPF (0-5)
[2023-11-28 16:16] LABS: RBC Urine 0-2 /HPF (0-2)
[2023-11-28 16:43] LABS: Alanine Aminotransferase 15 U/L (0-40); Albumin Level 4.5 g/dL (3.5-5.0); Alkaline Phosphatase 84 U/L (39-117); Anion Gap 12 (12-20); Aspartate Amino Transferase 16 U/L (5-37); Bilirubin Total 0.4 mg/dL (0.0-1.0); Blood Urea Nitrogen 19 mg/dL (9-16); Calcium 10.2 mg/dL (8.4-10.2); Carbon Dioxide 29 mmol/L (22-29); Chloride 106 mmol/L (96-108); Cholesterol 263 mg/dL (<200); Estimated Glomerular Filt Rate > 60; Glucose Fasting 97 mg/dL (60-99); HDL Cholesterol 40 mg/dL (>40); LDL Cholesterol Calculated 197 mg/dL (<100); PSA,Total (Free>4and<10) 1.79 ng/mL (0.00-4.00); Potassium 4.4 mmol/L (3.3-5.1); Sodium 143 mmol/L (135-145); Total Protein 7.7 g/dL (6.5-8.0); Triglycerides 130 mg/dL (<150)
[2023-11-28 16:44] LABS: TSH reflex Free T4 0.89 uIU/mL (0.32-4.0)
== END 2023-11-28 14:50 | disposition home or self-care (01) ==
LOC: HO.HMGCX 14:49
PROVIDERS: PCP Internal Medicine; Visit Provider Internal Medicine
DX: Z00.00 Encounter for general adult medical examination without abnormal findings (principal); E78.5 Hyperlipidemia, unspecified; M25.562 Pain in left knee; M25.551 Pain in right hip; M25.552 Pain in left hip; Z12.5 Encounter for screening for malignant neoplasm of prostate
CPT/HCPCS: 36415; 73521; 73560; 80053; 80061; 81001; 84153; 84443; 85025

== ENCOUNTER 2024-01-13 14:41 | Outpatient (AMB) | payer OTHER, SELFPAY ==
--- NOTE | 2024-01-13 14:42 | A.OFFVIS_ITS ---
Intake Visit Reasons: [employer]- LT knee pain, Low back pain Intake Note: Wiliam is a 63 year old male who presents with complaints of progressively worsening low back pain which radiates down his left leg as well as intermittent left knee discomfort. The patient states that his back pain at times feels like ?a knife?. His back pain has gotten worse over the last year in spite of continued non operative treatments. He has failed the last 6 weeks of conservative treatment. He has done physical therapy which aggravated his pain. He has also tried Tylenol and anti-inflammatory medicines which gave him minimal relief. The patient describes his knee pain as achy in nature. Reports intermittent and giving way. Allergies No Known Allergies Allergy (Verified 01/13/24 14:43) [facility] Family History Father No problems noted. Mother No problems noted. Social History Housing: House Patient Tobacco Use Status: Current everyday Tobacco user Cigarettes Per Day: 6 e-Cigarette/Vaping Use: Never Used service: Yes Current occupational status: employed Cognitive needs: No Hearing needs: No Vision needs: Yes Physical Exam Const Other: Well-nourished well-developed very friendly male awake alert and oriented x3 in no acute distress Back/Spine/Pelvis Other: Low back examination shows left-sided paraspinal muscle tenderness, pain with range of motion, positive straight leg raise test on the left at 70 degrees, 4/5 strength with testing of his left hip flexors and knee extensors when compared to 5/5 strength on his right side Extrem Other: Left knee examination shows a minimal effusion, minimal crepitus with range of motion, tenderness along his medial joint line, positive Andreas's test, no instability Results Reviewed Results Reviewed: X-rays of the patient's left knee show minimal joint space narrowing, no acute bony abnormalities Assessment & Plan Assessment & Plan (1) Low back pain radiating to left lower extremity: Code(s): M54.50 - Low back pain, unspecified; M79.605 - Pain in left leg Category: Medical Plan Mr. Do presents with progressively worsening low back pain which radiates down his left leg as well as associated left leg weakness possibly due to lumbar stenosis or a disc herniation. Thus, I will send the patient for an MRI of his spine for further evaluation. I will contact him by phone once the MRI results are available. He will call me prior to that time should his symptoms worsen in any way. The patient also has intermittent left knee discomfort most likely due to a tear of his medial meniscus. At this point the patient's left knee symptoms are tolerable to him. Feel free to call me at any time should questions regarding his orthopedic management arise. Thank you very much for asking me to see this very friendly gentleman. I spent 22 minutes in reviewing the patient's records and imaging studies, seeing the patient and documenting in the medical record. Orders: Orders MR lumbar spine wo con 01/13/24 M54.50 - Low back pain, unspecified, M79.605 - Pain in left leg Coding Level of Care Code New Pt Level 3 (67320) Diagnoses Low back pain radiating to left lower extremity M54.50; M79.605
== END 2024-01-13 15:25 | disposition home or self-care (01) ==
PROVIDERS: PCP Internal Medicine; Visit Provider Orthopaedic Surgery
DX: M54.50 Low back pain, unspecified (principal); M79.605 Pain in left leg
CPT/HCPCS: 99203

== ENCOUNTER → 2024-01-13 14:41 | Outpatient (BNVA) | payer OTHER, SELFPAY | PROVIDERS: PCP Internal Medicine; Visit Provider Orthopaedic Surgery ==

== ENCOUNTER 2024-02-28 18:03 | Outpatient (REF) | payer OTHER, SELFPAY ==
--- NOTE | ~2024-02-28 | MR_ITS ---
EXAMINATION: MR LUMBAR SPINE WITHOUT CONTRAST CLINICAL INFORMATION: Low back pain COMPARISON: None available. TECHNIQUE: MRI of the lumbar spine was obtained using routine sequences without contrast. FINDINGS: There are 5 nonrib-bearing lumbar-type vertebrae. Mild retrolisthesis at L1-2, L2-3, L3-4, and L4-5. No acute bone marrow abnormality. Mildly heterogeneous bone marrow signal is likely degenerative. The vertebral body heights are preserved. Multilevel disc desiccation with mild disc height loss at L1-2 and L5-S1. Multilevel endplate osteophytosis. The visualized spinal cord is normal in caliber. No abnormal cord signal. The conus medullaris terminates at L1. T12-L1: Bilateral facet arthrosis. No significant spinal canal or neural foraminal narrowing. L1-2: Diffuse disc bulge and bilateral facet arthrosis. No significant spinal canal or neural foraminal narrowing. L2-3: Diffuse disc bulge and bilateral facet arthrosis. Mild spinal canal stenosis. Mild right neural foraminal narrowing. L3-4: Diffuse disc bulge with superimposed annular fissure. Prominent dorsal epidural fat, ligamentum flavum hypertrophy, and bilateral facet arthrosis. Mild spinal canal stenosis. Mild right greater than left neural foraminal narrowing with the disc abutting the exiting L3 nerve roots bilaterally. L4-5: Diffuse disc bulge with superimposed right paracentral disc protrusion. Annular fissure and bilateral facet arthrosis. No significant spinal canal stenosis. Moderate to severe left greater than right neural foraminal narrowing with a disc abutting the exiting L4 nerve roots bilaterally. L5-S1: Bilateral facet arthrosis. No significant spinal canal or neural foraminal narrowing. The paravertebral soft tissues are unremarkable. MR/MR lumbar spine wo con IMPRESSION: Multilevel degenerative changes of the lumbar spine, most notable at L2-3 and L3-4 where there is mild spinal canal stenosis. Neural foraminal narrowing is worst and moderate to severe bilaterally at L4-L5 with disc abutting the exiting L4 nerve roots bilaterally. Electronically signed by: Kaylyn Huston MD 03/16/2024 04:49 PM EDT RP
== END 2024-02-28 18:04 | disposition home or self-care (01) ==
LOC: HO.MRI 18:03
PROVIDERS: PCP Internal Medicine; Visit Provider Orthopaedic Surgery
DX: M54.50 Low back pain, unspecified (principal); M79.605 Pain in left leg
CPT/HCPCS: 72148

== ENCOUNTER 2024-07-23 12:56 | Outpatient (REF) | payer OTHER, SELFPAY ==
--- NOTE | ~2024-07-23 | XR_ITS ---
EXAMINATION: XR CHEST 2 VIEWS HISTORY: R06.02 - Shortness of breath COMPARISON: Comparison is made with the prior examination dated 05/27/2023. FINDINGS: PA and lateral views of the chest are submitted. There are mild increased interstitial markings in the right upper lung zone without change. No new focal airspace opacity is identified. There is no pleural effusion, pneumothorax, or pulmonary vascular congestion. The heart is normal in size. The bones are intact. XR/XR chest 2V IMPRESSION: No acute cardiopulmonary abnormality. Electronically signed by: Alejo Pantoja MD 07/23/2024 01:51 PM [facility]
== END 2024-07-23 12:57 | disposition home or self-care (01) ==
LOC: HO.HMGCX 12:56
PROVIDERS: PCP Internal Medicine; Visit Provider Internal Medicine
DX: J44.9 Chronic obstructive pulmonary disease, unspecified (principal); R06.02 Shortness of breath; E78.5 Hyperlipidemia, unspecified; F17.210 Nicotine dependence, cigarettes, uncomplicated
CPT/HCPCS: 71046; 96127

== ENCOUNTER 2024-07-23 12:56 | Outpatient (AMB) | payer OTHER, SELFPAY ==
[2024-07-23 13:00] VITALS: BP 136/80; PULSE 92; RESP 16; TEMP 36.8; O2SAT 97; BMI 26.7
--- NOTE | 2024-07-23 13:00 | A.OFFPC_ITS ---
Vital Signs 07/23/24 13:00 Height 6 ft 2 in Weight 208 lb BMI 26.7 BP 136/80 Blood Pressure Location Lt brachial Position Sitting Respiration 16 Pulse 92 Pulse Source Pulse Oximeter Temp 98.3 F Temp Source Oral Pulse Oximetry (%) 97 Oxygen Delivery Method Room Air Intake Visit Reasons: Shortness of breath Intake Note: Pt is here today for a sick visit. Pt c/o SOB. Allergies No Known Allergies Allergy (Verified 07/23/24 13:01) Medication List - Last Reconciled 07/23/24 by Mahi Brizuela MD No Known Home Meds Tobacco use date assessed: 07/23/24 Dental Screening Dental Screen Date: 07/23/24 Did you have a dental visit in the last 12 months?: No Did you have a dental problem in the last 6 months where you did not have access to dental care?: No Was dental information given to patient?: Patient declined HPI Shortness of breath HPI Details Pt presents complaining of intermittent cough with occasionally some sputum increasing dyspnea on exertion chills for 2 weeks. Patient denies pleurisy nausea vomiting. He continues to smoke 2 packs a day. Patient use Anoro inhaler in the past which was helpful. Patient has been trying to quit smoking. [facility] Family History Father No problems noted. Mother No problems noted. Social History Housing: [place] Patient Tobacco Use Status: Current everyday Tobacco user Cigarettes Per Day: 2 e-Cigarette/Vaping Use: Never Used service: Yes Current occupational status: employed Cognitive needs: No Hearing needs: No Vision needs: Yes Questionnaire PHQ-9 Over the last 2 weeks, how often have you been bothered by any of the following problems? 1. Little interest or pleasure in doing things: not at all 2. Feeling down, depressed, or hopeless: not at all 3. Trouble falling or staying asleep, or sleeping too much: not at all 4. Feeling tired or having little energy: not at all 5. Poor appetite or overeating: not at all 6. Feeling bad about yourself - or that you are a failure or have let yourself or your family down: not at all 7. Trouble concentrating on things, such as reading the newspaper or watching television: not at all 8. Moving or speaking so slowly that other people could have noticed. Or the opposite - being so fidgety or restless that you have been moving around a lot more than usual: not at all 9. Thoughts that you would be better off or of hurting yourself in some way: not at all Total score: 0 Depression Screening Interpretation: Negative Depression Screening Done: Yes 40936 - PHQ-9 Billing: Yes Source: Developed by Drs. Alejo Rojas, Fabi Jain, Delroy Conroy and colleagues, with an educational janie from [employer]. Thrive Questionnaire Date Thrive assessed: 07/23/24 I am a: Patient What is your living situation today?: I have a steady place to live Within the past 12 months, did the food you bought not last and you didn't have the money to get more?: I choose not to answer this question Within the past 12 months, did you worry whether your food would run out before you got money to buy more?: I choose not to answer this question Do you have trouble paying for medicines?: No Do you have trouble getting transportation to medical appointments?: No Do you have trouble paying your heating and electricity bill?: No Do you have trouble taking care of your child, family member or friend?: No Do you have trouble with day-to-day activities such as bathing, preparing meals, shopping, managing finances, etc.?: No Are you currently unemployed and looking for a job?: No Are you interested in more education?: No Please select the resources that you would like help with: None Currently or been in a relationship where the following occur: I choose not to answer THRIVE Score: 0 AUDIT C Alcohol Use Questionnaire (AUDIT-C) 1. How often do you have a drink containing alcohol?: Never 3. How often do you have six or more drinks on one occasion?: Never Total Score: 0 FIDENCIO-7 AMB Questionnaire FIDENCIO-7 Date FIDENCIO - 7 assessed: 07/23/24 Feeling nervous, anxious, or on edge: 0 = Not at all Not being able to stop or control worryin = Not at all Worrying too much about different things: 0 = Not at all Trouble relaxin = Not at all Being so restless that it is hard to sit still: 0 = Not at all Becoming easily annoyed or irritable: 0 = Not at all Feeling afraid as if something awful might happen: 0 = Not at all Total FIDENCIO-7 score (0-4 normal; 5-9 mild; 10-14 moderate; 15-21 severe): 0 Source: Developed by Drs. Alejo Rojas, Fabi Jain, Delroy Conroy and colleagues, with an educational janie from [employer]. FIDENCIO-7 Assessment Billing FIDENCIO-7 Assessment Tool: FIDENCIO-7 Assessment 88261 Review of Systems Const All systems reviewed & are unremarkable except as noted in HPI and below Eyes Reports no additional complaints ENT Reports no additional complaints Card Reports no additional complaints Resp Reports no additional complaints GI Reports no additional complaints Reports no additional complaints Physical exam (Primary Care) Vital Signs: Last Vital Signs Temp 98.3 F 07/23/24 13:00 Pulse 92 07/23/24 13:00 Resp 16 07/23/24 13:00 BP 136/80 07/23/24 13:00 Pulse Ox 97 07/23/24 13:00 Oxygen Delivery Method Room Air 07/23/24 13:00 BMI result Body Mass Index 26.7 Tobacco/Smoking Status: Tobacco use Status Tobacco use date assessed 07/23/24 07/23/24 13:07 Patient Tobacco Use Status Current everyday Tobacco 07/23/24 13:07 e-Cigarette/Vaping Use Never Used 07/23/24 13:07 PHQ-9: PHQ-9 Score PHQ-9: Total score 0 07/23/24 13:07 Depression Screening Interpretation: Negative Thrive Assessment: Date of Thrive Assessment Date Thrive assessed 07/23/24 07/23/24 13:07 Currently or been in a relationship where the following occur: I choose not to answer Const General: no acute distress HENMT Head: Yes normal to inspection Throat: Yes posterior oropharynx normal Neck Neck: Yes no lymphadenopathy and Yes supple Resp Effort & Inspection: normal respiratory effort Auscultation: crackles, wheezes and diminished lung sounds Cardio Rhythm: regular rhythm Heart sounds: S1 normal heart sound present and S2 normal heart sound present GI Inspection: Yes normal to inspection Palpation (GI): Soft to palpation Coding Level of Care Code Est Pt Level 4 (12043) Diagnoses COPD (chronic obstructive pulmonary disease) J44.9 Smoker F17.200 Hyperlipidemia E78.5 Additional Codes FIDENCIO-7 Assessment Billing - FIDENCIO-7 Assessment Tool: FIDENCIO-7 Assessment 97414 ([id number]) PHQ-9 - 35050 - PHQ-9 Billing: Yes ([id number]) Assessment & Plan Assessment & Plan (1) COPD (chronic obstructive pulmonary disease): Code(s): J44.9 - Chronic obstructive pulmonary disease, unspecified Category: Medical Plan: For COPD exacerbation prednisone taper and doxycycline are prescribed , patient will restart Anoro, tobacco quitting discussed with the patient. Chest x-ray will be obtained . patient is referred to lung cancer screening program (2) Smoker: Comment: 2 PPD, x 40 yrs Code(s): F17.200 - Nicotine dependence, unspecified, uncomplicated Category: Social Hx Plan: Tobacco quitting discussed with the patient (3) Hyperlipidemia: Comment: taking Fish oil, refused statin Code(s): E78.5 - Hyperlipidemia, unspecified Category: Medical Plan: Continue low-cholesterol diet return for fasting blood work before physical in December Orders: Orders XR chest 1V Today F17.200 - Nicotine dependence, unspecified, uncomplicated, R06.02 - Shortness of breath Referrals Thoracic/General Surgery Referral F17.200 - Nicotine dependence, unspecified, uncomplicated Medications: New doxycycline hyclate 100 mg PO BID 20 tabs 0RF prednisone 4 tabl qd x 3 days, then 3 tabl x3 days, then 2 tabl qd x3 days 1 tabl qd orally daily; 30 tabs 0RF
== END 2024-07-23 13:31 | disposition home or self-care (01) ==
PROVIDERS: PCP Internal Medicine; Visit Provider Internal Medicine
DX: J44.9 Chronic obstructive pulmonary disease, unspecified (principal); F17.200 Nicotine dependence, unspecified, uncomplicated; E78.5 Hyperlipidemia, unspecified

== ENCOUNTER → 2024-07-23 13:32 | Outpatient (BNV) | payer OTHER, SELFPAY | PROVIDERS: PCP Internal Medicine; Visit Provider Radiology Diagnostic Radiology | DX: R06.02 Shortness of breath (principal) | CPT/HCPCS: 71046 ==

== ENCOUNTER 2024-08-26 15:56 | Outpatient (REF) | payer OTHER, SELFPAY ==
--- NOTE | 2024-08-26 16:04 | PFT_ITS ---
Indication: Dyspnea Spirometry [FEV1 to FVC 69% pre bronchodilators 71% post bronchodilators; FEV1 3.69 L; FVC 5.17 L. no significant response to bronchodilators noted.] Lung Volumes [Total lung capacity 93% predicted; residual volume 94% predicted] Diffusion Capacity [DLCO 67% predicted] Comparisons [none] Interpretation [There appears to be a partially reversible obstruction consistent with diagnosis of asthma or asthma COPD overlap syndrome. No significant response to bronchodilators noted. The patient does have some evidence of small airways disease. Lung volumes are normal. The patient does have a mild diffusion impairment. Clinical correlation warranted.] MTDD
[2024-08-26 16:46] VITALS: PULSE 82
== END 2024-08-26 15:57 | disposition home or self-care (01) ==
LOC: HO.RESP 15:56
PROVIDERS: PCP Internal Medicine; Visit Provider Internal Medicine
DX: R06.02 Shortness of breath (principal); F17.200 Nicotine dependence, unspecified, uncomplicated
CPT/HCPCS: 94010; 94640; 94727; 94729

== ENCOUNTER → 2024-08-26 16:04 | Outpatient (BNV) | payer OTHER, SELFPAY | PROVIDERS: PCP Internal Medicine; Visit Provider Hospitalist | DX: R06.02 Shortness of breath (principal); F17.210 Nicotine dependence, cigarettes, uncomplicated | CPT/HCPCS: 94060; 94727; 94729 ==

== ENCOUNTER 2025-01-05 13:47 | Outpatient (AMB) | payer OTHER, SELFPAY ==
[2025-01-05 14:07] VITALS: BP 118/70; PULSE 84; RESP 18; TEMP 36.8; O2SAT 97; BMI 26.6
--- NOTE | 2025-01-05 14:07 | A.OFFPC_ITS ---
Vital Signs 01/05/25 14:07 Height 6 ft 2 in Weight 207 lb BMI 26.6 BP 118/70 Blood Pressure Location Rt brachial Position Sitting Respiration 18 Pulse 84 Pulse Source Pulse Oximeter Temp 98.2 F Temp Source Oral Pulse Oximetry (%) 97 Oxygen Delivery Method Room Air Intake Visit Reasons: Annual PE Intake Note: Pt is here today for PE. Allergies No Known Allergies Allergy (Verified 01/05/25 14:12) Medication List - Last Reconciled 01/05/25 by Mahi Brizuela MD rosuvastatin (Crestor) 10 mg PO DAILY Tobacco use date assessed: 01/05/25 Dental Screening Dental Screen Date: 07/23/24 HPI Annual PE HPI Details Patient presents for a physical [facility] Medical History (Updated 01/05/25 @ 15:10 by Mahi Brizuela MD) Smoker COPD (chronic obstructive pulmonary disease) C7 radiculopathy Microscopic hematuria Hyperlipidemia Surgical History (Updated 01/05/25 @ 14:14 by YULISSA Santana) No pertinent past surgical history Family History Father No problems noted. Mother No problems noted. Social History Housing: House Patient Tobacco Use Status: Current everyday Tobacco user Cigarettes Per Day: 2 e-Cigarette/Vaping Use: Never Used service: Yes Current occupational status: employed Cognitive needs: No Hearing needs: No Vision needs: Yes Questionnaire Thrive Questionnaire Date Thrive assessed: 07/23/24 I am a: Patient What is your living situation today?: I have a steady place to live Within the past 12 months, did the food you bought not last and you didn't have the money to get more?: I choose not to answer this question Within the past 12 months, did you worry whether your food would run out before you got money to buy more?: I choose not to answer this question Do you have trouble paying for medicines?: No Do you have trouble getting transportation to medical appointments?: No Do you have trouble paying your heating and electricity bill?: No Do you have trouble taking care of your child, family member or friend?: No Do you have trouble with day-to-day activities such as bathing, preparing meals, shopping, managing finances, etc.?: No Are you currently unemployed and looking for a job?: No Are you interested in more education?: No Please select the resources that you would like help with: None Currently or been in a relationship where the following occur: I choose not to answer THRIVE Score: 0 FIDENCIO-7 AMB Questionnaire FIDENCIO-7 Date FIDENCIO - 7 assessed: 07/23/24 Source: Developed by Drs. Alejo Rojas, Fabi Jain, Delroy Conroy and colleagues, with an educational janie from [employer]. Review of Systems Const All systems reviewed & are unremarkable except as noted in HPI and below Eyes Reports no additional complaints ENT Reports no additional complaints Card Reports no additional complaints Resp Reports no additional complaints GI Reports no additional complaints Reports no additional complaints Physical exam (Primary Care) Vital Signs: Last Vital Signs Temp 98.2 F 01/05/25 14:07 Pulse 84 01/05/25 14:07 Resp 18 01/05/25 14:07 BP 118/70 01/05/25 14:07 Pulse Ox 97 01/05/25 14:07 Oxygen Delivery Method Room Air 01/05/25 14:07 BMI result Body Mass Index 26.6 Tobacco/Smoking Status: Tobacco use Status Tobacco use date assessed 01/05/25 01/05/25 14:16 Patient Tobacco Use Status Current everyday Tobacco 01/05/25 14:16 e-Cigarette/Vaping Use Never Used 01/05/25 14:08 Thrive Assessment: Date of Thrive Assessment Date Thrive assessed 07/23/24 01/05/25 14:08 Currently or been in a relationship where the following occur: I choose not to answer Const General: no acute distress HENMT Ears: hearing grossly normal bilaterally Face and sinus: Yes normal facial exam Mouth: Normal oral and palatal mucosa present Eyes General: appearance normal, both eyes and all related structures Neck Neck: Yes no lymphadenopathy and Yes supple Resp Effort & Inspection: normal respiratory effort Auscultation: clear to auscultation bilaterally Cardio Rhythm: regular rhythm Heart sounds: S1 normal heart sound present and S2 normal heart sound present GI Inspection: Yes normal to inspection Palpation (GI): Soft to palpation Percussion: Yes normal to percussion Auscultation: normal bowel sounds Coding Level of Care Code Est Pt Prev Care 40-64y(09609) Diagnoses Hyperlipidemia E78.5 Annual physical exam Z00.00 Smoker F17.200 COPD (chronic obstructive pulmonary disease) J44.9 Assessment & Plan Assessment & Plan (1) Hyperlipidemia: Comment: taking Fish oil, refused statin Code(s): E78.5 - Hyperlipidemia, unspecified Category: Medical Plan: Patient will try 10 mg of Crestor. Continue low-cholesterol diet follow-up in 2 months with a fasting labs before (2) Annual physical exam: Comment: Refused colonoscopy 01/11, negative Cologuard 01/11, patient refused Cologuard or colonoscopy December 2024 Code(s): Z00.00 - Encounter for general adult medical examination without abnormal findings Category: Medical Plan: A patient declined colonoscopy and Cologuard (3) Smoker: Comment: 2 PPD, x 40 yrs Code(s): F17.200 - Nicotine dependence, unspecified, uncomplicated Category: Social Hx Plan: Tobacco quitting discussed with the patient. He will be referred to lung cancer screening program (4) COPD (chronic obstructive pulmonary disease): Comment: Patient declined inhalers Code(s): J44.9 - Chronic obstructive pulmonary disease, unspecified Category: Medical Plan: Tobacco quitting discussed with the patient Orders: Orders Comprehensive [place]. Panel Fast 2 Months E78.5 - Hyperlipidemia, unspecified, F17.200 - Nicotine dependence, unspecified, uncomplicated PSA,Total (Free>4and<10) 2 Months E78.5 - Hyperlipidemia, unspecified, F17.200 - Nicotine dependence, unspecified, uncomplicated Lipid Panel 2 Months E78.5 - Hyperlipidemia, unspecified, F17.200 - Nicotine dependence, unspecified, uncomplicated Complete Blood Count Auto Diff 2 Months E78.5 - Hyperlipidemia, unspecified, F17.200 - Nicotine dependence, unspecified, uncomplicated UA w Microscopic 2 Months E78.5 - Hyperlipidemia, unspecified, F17.200 - Nicotine dependence, unspecified, uncomplicated Referrals Lung Cancer Screening Referral F17.200 - Nicotine dependence, unspecified, uncomplicated Medications: New rosuvastatin (Crestor) 10 mg PO DAILY 90 tabs 3RF
== END 2025-01-05 14:52 | disposition home or self-care (01) ==
LOC: HO.HMCC 13:48
PROVIDERS: PCP Internal Medicine; Visit Provider Internal Medicine
DX: E78.5 Hyperlipidemia, unspecified (principal); Z00.00 Encounter for general adult medical examination without abnormal findings; F17.200 Nicotine dependence, unspecified, uncomplicated; J44.9 Chronic obstructive pulmonary disease, unspecified

== ENCOUNTER 2025-03-01 08:17 | Outpatient (REF) | payer OTHER, SELFPAY ==
[2025-03-01 10:06] LABS: MANUAL DIFF FLAG NO
[2025-03-01 10:12] LABS: Hematocrit 39.8 % (42.0-52.0); Hemoglobin 13.8 g/dl (14.0-18.0); Imm Gran Abs Auto 0.02 X10*3/uL (0.00-0.03); Imm Gran Pct Auto 0.2 % (0.0-0.4); Lymphocytes Absolute Auto 3.1 X10*3/uL (1.2-4.9); Mean Corpuscular HGB Conc 34.7 g/dl (31.0-36.0); Mean Corpuscular Hemoglobin 30.2 pg (27.0-33.0); Mean Corpuscular Volume 87.1 fL (80.0-98.0); NRBC Abs Auto 0.000 X10*3/uL (0.0-0.012); NRBC Pct Auto 0.0 /100WBC (0.0-0.2); Platelet Count 224 X10*3/uL (160-400); Red Blood Count 4.57 X10*6/uL (4.60-5.80); White Blood Count 8.1 X10*3/uL (4.8-10.8)
[2025-03-01 10:49] LABS: PSA,Total (Free>4and<10) 1.89 ng/mL (0.00-4.00)
[2025-03-01 10:50] LABS: Alanine Aminotransferase 42 U/L (0-40); Albumin Level 4.4 g/dL (3.5-5.0); Alkaline Phosphatase 90 U/L (39-117); Anion Gap 13 (12-20); Aspartate Amino Transferase 29 U/L (5-37); Blood Urea Nitrogen 16 mg/dL (9-16); Calcium 9.2 mg/dL (8.4-10.2); Carbon Dioxide 27 mmol/L (22-29); Chloride 107 mmol/L (96-108); Cholesterol 169 mg/dL (<200); Estimated Glomerular Filt Rate > 60; HDL Cholesterol 39 mg/dL (>40); Potassium 4.5 mmol/L (3.3-5.1); Sodium 142 mmol/L (135-145); Total Protein 7.4 g/dL (6.5-8.0); Triglycerides 103 mg/dL (<150)
== END 2025-03-01 08:18 | disposition home or self-care (01) ==
LOC: HO.HMGCLDS 08:17
PROVIDERS: PCP Internal Medicine; Visit Provider Internal Medicine
DX: Z12.5 Encounter for screening for malignant neoplasm of prostate (principal); F17.200 Nicotine dependence, unspecified, uncomplicated; E78.5 Hyperlipidemia, unspecified
CPT/HCPCS: 36415; 80053; 80061; 84153; 85025

== ENCOUNTER 2025-03-02 05:00 | Outpatient (REF) | payer OTHER, SELFPAY ==
[2025-03-02 13:52] LABS: Appearance Urine Clear; Glucose Urine UA Negative (Negative); PH 5.5 (5.0-9.0); Specific Gravity - Urine 1.015 (1.005-1.025)
== END 2025-03-02 05:01 | disposition home or self-care (01) ==
LOC: HO.HMGCLNP 05:00
PROVIDERS: PCP Internal Medicine; Visit Provider Internal Medicine
DX: E78.5 Hyperlipidemia, unspecified (principal); F17.200 Nicotine dependence, unspecified, uncomplicated
CPT/HCPCS: 81001

== ENCOUNTER 2025-03-10 13:59 | Outpatient (AMB) | payer OTHER, SELFPAY ==
[2025-03-10 14:30] VITALS: BP 118/70; PULSE 88; RESP 18; TEMP 36.9; O2SAT 96; BMI 26.6
--- NOTE | 2025-03-10 14:30 | MHC.PC.OV ---
Vital Signs 03/10/25 14:30 Height 6 ft 2 in Weight 207 lb BMI 26.6 BP 118/70 Blood Pressure Location Lt brachial Position Sitting Respiration 18 Pulse 88 Pulse Source Pulse Oximeter Temp 98.4 F Temp Source Oral Pulse Oximetry (%) 96 Oxygen Delivery Method Room Air Intake Visit Reasons: 2m follow up Intake Note: Pt is here today for 2 months follow up visit. Allergies No Known Allergies Allergy (Verified 03/10/25 14:31) Medication List - Last Reconciled 03/10/25 by Mahi Brizuela MD rosuvastatin (Crestor) 10 mg PO DAILY Tobacco use date assessed: 03/10/25 Dental Screening Dental Screen Date: 07/23/24 HPI 2m follow up HPI Details Patient presents for the follow-up of hyperlipidemia controlled on Crestor COUNTS INCLUDE [facility] BEDS AT THE [facility] Medical History Nicotine dependence, cigarettes, uncomplicated COPD (chronic obstructive pulmonary disease) C7 radiculopathy Microscopic hematuria Hyperlipidemia Surgical History No pertinent past surgical history Family History Father No problems noted. Mother No problems noted. Social History Housing: House Patient Tobacco Use Status: Current everyday Tobacco user Cigarettes Per Day: 2 e-Cigarette/Vaping Use: Never Used service: Yes Current occupational status: employed Cognitive needs: No Hearing needs: No Vision needs: Yes Questionnaire Thrive Questionnaire Date Thrive assessed: 07/23/24 I am a: Patient What is your living situation today?: I have a steady place to live Within the past 12 months, did the food you bought not last and you didn't have the money to get more?: I choose not to answer this question Within the past 12 months, did you worry whether your food would run out before you got money to buy more?: I choose not to answer this question Do you have trouble paying for medicines?: No Do you have trouble getting transportation to medical appointments?: No Do you have trouble paying your heating and electricity bill?: No Do you have trouble taking care of your child, family member or friend?: No Do you have trouble with day-to-day activities such as bathing, preparing meals, shopping, managing finances, etc.?: No Are you currently unemployed and looking for a job?: No Are you interested in more education?: No Please select the resources that you would like help with: None Currently or been in a relationship where the following occur: I choose not to answer THRIVE Score: 0 FIDENCIO-7 AMB Questionnaire FIDENCIO-7 Date FIDENCIO - 7 assessed: 07/23/24 Source: Developed by Drs. Alejo Rojas, Fabi Jain, Delroy Conroy and colleagues, with an educational janie from [employer]. Review of Systems Const All systems reviewed & are unremarkable except as noted in HPI and below Eyes Reports no additional complaints Card Reports no additional complaints Resp Reports no additional complaints GI Reports no additional complaints Reports no additional complaints Physical exam (Primary Care) Vital Signs: Last Vital Signs Temp 98.4 F 03/10/25 14:30 Pulse 88 03/10/25 14:30 Resp 18 03/10/25 14:30 BP 118/70 03/10/25 14:30 Pulse Ox 96 03/10/25 14:30 Oxygen Delivery Method Room Air 03/10/25 14:30 BMI result Body Mass Index 26.6 Tobacco/Smoking Status: Tobacco use Status Tobacco use date assessed 03/10/25 03/10/25 14:35 Patient Tobacco Use Status Current everyday Tobacco 03/10/25 14:35 e-Cigarette/Vaping Use Never Used 03/10/25 14:35 Thrive Assessment: Date of Thrive Assessment Date Thrive assessed 07/23/24 03/10/25 14:35 Currently or been in a relationship where the following occur: I choose not to answer Const General: no acute distress HENMT Ears: TM's normal bilaterally Resp Effort & Inspection: normal respiratory effort Auscultation: clear to auscultation bilaterally Cardio Rhythm: regular rhythm Heart sounds: S1 normal heart sound present and S2 normal heart sound present Coding Level of Care Code Est Pt Level 3 (51698) Diagnoses Hyperlipidemia E78.5 Nicotine dependence, cigarettes, uncomplicated F17.210 Assessment & Plan Assessment & Plan (1) Hyperlipidemia: Comment: taking Fish oil, Code(s): E78.5 - Hyperlipidemia, unspecified Category: Medical Plan: Patient will continue Crestor return for fasting blood work in 3 months. Low-cholesterol diet regular physical activity discussed with the patient, physical in December with a fasting labs before (2) Nicotine dependence, cigarettes, uncomplicated: Comment: (max 2ppd - 40yrs) Code(s): F17.210 - Nicotine dependence, cigarettes, uncomplicated Category: Medical Plan: Tobacco quitting discussed with the patient he will follow-up with lung cancer screening program Orders: Orders Lipid Panel 3 Months E78.5 - Hyperlipidemia, unspecified Comprehensive [place]. Panel Fast 3 Months E78.5 - Hyperlipidemia, unspecified Comprehensive [place]. Panel Fast 10 Months E78.5 - Hyperlipidemia, unspecified, Z00.00 - Encounter for general adult medical examination without abnormal findings TSH reflex Free T4 10 Months E78.5 - Hyperlipidemia, unspecified, Z00.00 - Encounter for general adult medical examination without abnormal findings Lipid Panel 10 Months E78.5 - Hyperlipidemia, unspecified, Z00.00 - Encounter for general adult medical examination without abnormal findings Complete Blood Count Auto Diff 10 Months E78.5 - Hyperlipidemia, unspecified, Z00.00 - Encounter for general adult medical examination without abnormal findings PSA,Total (Free>4and<10) 10 Months E78.5 - Hyperlipidemia, unspecified, Z00.00 - Encounter for general adult medical examination without abnormal findings UA w Microscopic 10 Months E78.5 - Hyperlipidemia, unspecified, Z00.00 - Encounter for general adult medical examination without abnormal findings
== END 2025-03-10 15:37 | disposition home or self-care (01) ==
LOC: HO.HMCC 14:00
PROVIDERS: PCP Internal Medicine; Visit Provider Internal Medicine
DX: E78.5 Hyperlipidemia, unspecified (principal); F17.210 Nicotine dependence, cigarettes, uncomplicated

== ENCOUNTER 2025-04-29 09:18 | Outpatient (AMB) | payer OTHER, SELFPAY ==
--- NOTE | 2025-04-29 07:45 | A.OFFVIS_ITS ---
Intake Visit Reasons: Current Smoker Allergies No Known Allergies Allergy (Verified 03/10/25 14:31) HPI HPI Current Smoker: Details: Initial visit for this 64yo smoker with a 23PYH. Patient started smoking at age 17 for 47 years at 1/2ppd. . Denies marijuana use. Denies second hand smoke exposure. Denies exposure to chemicals or substances like asbestos. . Denies known family history of lung cancer. Denies personal history of cancers. Denies chest CT in last year. . Notes travel outside the . [facility]. Denies recent respiratory illness or recent hospitalization for respiratory issues. History of testing positive for COVID. Admits receiving COVID Vaccine. . Denies fever, chills, new/worsening cough, hemoptysis, hoarseness or dysphagia. Denies significant chest pain, significant dyspnea or unintentional weight loss. Patient Lung Cancer Screening Questionnaire reviewed with patient by provider. . Shared Decision Making Completed. Patient meets criteria. Discussed in detail with patient, the risk vs benefit of LDCT screening. Patient consents to proceed with scan. Discussed smoking cessation. [facility] Medical History (Updated 04/29/25 @ 09:30 by Sonya Hernandez PA-C) Nicotine dependence, cigarettes, uncomplicated COPD (chronic obstructive pulmonary disease) C7 radiculopathy Microscopic hematuria Hyperlipidemia Surgical History (Updated 04/29/25 @ 09:39 by Sonya Hernandez PA-C) History of tonsillectomy Family History Father No problems noted. Mother No problems noted. Social History (Updated 04/29/25 @ 09:31 by Sonya Hernandez PA-C) Housing: House Patient Tobacco Use Status: Current everyday Tobacco user Years Smoked: (onset 17yo, 1/2ppd x 47yrs, 23pyh) e-Cigarette/Vaping Use: Never Used service: Yes Current occupational status: employed Cognitive needs: No Hearing needs: No Vision needs: Yes Assessment & Plan Assessment & Plan (1) Nicotine dependence, cigarettes, uncomplicated: Comment: (onset 17yo, 1/2ppd x 47yrs, 23pyh) Code(s): F17.210 - Nicotine dependence, cigarettes, uncomplicated Category: Medical Plan: - SDM visit completed today in office. - Patient meets criteria for LDCT for lung cancer screening purposes and is asymptomatic. - Smoking cessation counseling offered. Patients can always call [phone]. - Will arrange for a LDCT scan of the chest for screening purposes at [facility]. - Risks, benefits, and alternatives were discussed in detail and the patient agrees to proceed. - Risks discussed include but are not limited to: radiation exposure, anxiety during testing and while awaiting results, false negatives, false positives and possibility of additional intervention such as further imaging or surgical procedures for benign disease. - Benefits are obviously detection of lung cancer at an early stage which can lead to improved outcomes. - Discussed the importance of screening program compliance with adherence to yearly LDCT scan as scheduled - or sooner interval scans for personalized screening regimen. - Discussed follow up plan. Our office will send a letter discussing results and if needed set up phone call and office visit based on CT findings. - Patient educated on results categorization and the management decisions for suspicious findings potentially found on the screening LDCT scan. Any patient with a Lung RADS score of 3 or 4 will be reviewed by a multidisciplinary team at [facility] to form a plan of action in regards to scan findings. - If further work up is warranted for a suspicious lung finding this will be followed by the Lung Cancer Screening program in conjunction with the Thoracic Surgery Department at [facility]. - A copy of the office note and LDCT will be sent to the patient's PCP - as well as documentation on any associated further plans of care. - Incidental findings on LDCT are the PCP's responsibility. These findings are indicated with an S finding on the LDCT Assessment. A note discussing the findings will be sent to the PCP who is then responsible for further management. - All questions answered.? Coding Level of Care Code Lung Cancer Screening G0296 Diagnoses Nicotine dependence, cigarettes, uncomplicated F17.210
== END 2025-04-29 09:51 | disposition home or self-care (01) ==
LOC: HO.HPS 09:19
PROVIDERS: PCP Internal Medicine; Referring Provider Internal Medicine; Visit Provider Physician Assistant Medical
DX: F17.210 Nicotine dependence, cigarettes, uncomplicated (principal)
CPT/HCPCS: G0296

== ENCOUNTER 2025-04-29 09:44 | Outpatient (REF) | payer OTHER, SELFPAY ==
--- NOTE | ~2025-04-29 | CT_ITS ---
EXAMINATION: CT LUNG SCREENING HISTORY: F17.210 - Nicotine dependence, cigarettes, uncomplicated TECHNIQUE: Low dose axial images were obtained from the sternal notch to upper abdomen without IV contrast per standard departmental protocol. Sagittal and coronal reformatted images were also obtained and reviewed. One or more of the following techniques was used for dose reduction: Automated exposure control, adjustment of the mA and/or kV according to patient size, use of iterative reconstruction technique. DLP: 54 mGy-cm COMPARISON: Correlation is made with PA and lateral views of the chest dated 07/23/2024. FINDINGS: Lung nodules: There is biapical pleural and parenchymal scarring which has a somewhat nodular appearance. There is a 3 mm subpleural nodule in the right upper lobe (series 4, image 32). There is a 2 mm subpleural nodule in the left upper lobe (series 4, image 49), and an additional 2 mm subpleural nodule more inferiorly in the left upper lobe (series 4, image 60). Emphysema: mild Coronary Calcification: none Aortic Arch Calcification: mild Potentially Significant Incidentals : none Additional Chest Findings: There is no pleural or pericardial effusion. No mediastinal or axillary lymphadenopathy is identified. Visualized upper abdomen: The visualized portions of the liver, spleen, and adrenals have an unremarkable unenhanced appearance. CT/CT lung screening IMPRESSION: No suspicious pulmonary nodules are identified. LUNG-RADS ASSESSMENT: Lung-RADS 2: Benign MANAGEMENT: Continue annual screening with LDCT in 12 months Category S: N/A Electronically signed by: Alejo Pantoja MD 04/29/2025 10:38 AM EST
== END 2025-04-29 09:45 | disposition home or self-care (01) ==
LOC: HO.CT 09:44
PROVIDERS: PCP Internal Medicine; Visit Provider Physician Assistant Medical
DX: Z12.2 Encounter for screening for malignant neoplasm of respiratory organs (principal); F17.210 Nicotine dependence, cigarettes, uncomplicated
CPT/HCPCS: 71271

== ENCOUNTER → 2025-04-29 09:45 | Outpatient (BNV) | payer OTHER, SELFPAY | PROVIDERS: PCP Internal Medicine; Visit Provider Radiology Diagnostic Radiology | DX: Z12.2 Encounter for screening for malignant neoplasm of respiratory organs (principal); Z87.891 Personal history of nicotine dependence | CPT/HCPCS: 71271 ==